=== PATIENT | male | born 1940 | race Caucasian/White ===

== ENCOUNTER → 2018-11-11 | Outpatient (CLI) | payer MEDICARE ==
[2018-11-11 10:51] LABS: ABSOLUTE LYMPHOCYTES 0.7 thou/uL (0.8-5.3); ABSOLUTE MONOCYTES 0.5 thou/uL (0.0-1.2); ABSOLUTE NEUTROPHILS 5.2 thou/uL (1.6-8.1); BASOPHILS 0.1 %; HEMOGLOBIN 14.7 gm/dL (14.0-18.0); LYMPHOCYTES 10.4 %; MCH 29.3 pg (26.0-34.0); MCHC 33.3 g/dL (28.0-37.0); MCV 87.9 fL (80.0-100.0); MONOCYTES 8.3 %; MPV 7.5 fl. (7.2-11.1); NUCLEATED RBCS 0 /100WBC; PLATELET COUNT* 203 thou/uL (150-400); POLYS 81.2 %; RBC 5.01 mil/uL (4.50-6.00); RDW-CV 14.7 % (10.5-14.5); WBC 6.4 thou/uL (4.0-11.0)
[2018-11-11 11:01] LABS: ALKALINE PHOSPHATASE 84 U/L (46-116); ANION GAP 8 mmol/L (7-16); BUN 21 mg/dL (7-18); CALCIUM 9.4 mg/dL (8.5-10.1); CHLORIDE 104 mmol/L (98-107); CHOLESTEROL 164 mg/dL (<200); CO2 30 mmol/L (21-32); CREATININE 0.9 mg/dL (0.6-1.3); DIRECT BILIRUBIN 0.2 mg/dL (<0.1-0.3); GLUCOSE 127 mg/dL (70-99); HDL CHOLESTEROL 67 mg/dL (>40); LDL CHOLESTEROL 93 mg/dL (<100); POTASSIUM 3.9 mmol/L (3.5-5.1); SGOT 11 U/L (15-37); SGPT 19 U/L (30-65); SODIUM 142 mmol/L (136-145); TC:HDL 2.4 Ratio (Not establshd); TOTAL BILIRUBIN 0.6 mg/dL (<0.1-1.0); TOTAL PROTEIN 8.1 g/dL (6.4-8.2); TRIGLYCERIDE 21 mg/dL (<150); VLDL 4 mg/dL (<40)
[2018-11-11 11:02] LABS: SERUM ASSESSMENT Clear
[2018-11-11 11:54] LABS: ESR (SEDRATE) 10 mm/hr (0-20)
[2018-11-11 17:06] LABS: GLYCOHEMOGLOBIN (HGB A1C) 5.4 % (4.8-5.6)
== END ==
LOC: M.CT 09:45
PROVIDERS: Registered Nurse Diabetes Educator
DX: M47.816 Spondylosis without myelopathy or radiculopathy, lumbar region (principal); M41.86 Other forms of scoliosis, lumbar region; M46.06 Spinal enthesopathy, lumbar region; M16.11 Unilateral primary osteoarthritis, right hip; I65.23 Occlusion and stenosis of bilateral carotid arteries; M25.552 Pain in left hip; R82.4 Acetonuria; R31.9 Hematuria, unspecified; R10.30 Lower abdominal pain, unspecified; I10 Essential (primary) hypertension; E55.9 Vitamin D deficiency, unspecified; K21.0 Gastro-esophageal reflux disease with esophagitis; R41.3 Other amnesia; H91.93 Unspecified hearing loss, bilateral; R47.89 Other speech disturbances; E53.8 Deficiency of other specified B group vitamins; Z88.8 Allergy status to other drugs, medicaments and biological substances; Z87.442 Personal history of urinary calculi; Z79.899 Other long term (current) drug therapy; Z68.26 Body mass index [BMI] 26.0-26.9, adult

== ENCOUNTER → 2018-12-02 | Outpatient (CLI) | payer MEDICARE | LOC: M.LAB 10:00 → M.CT 11:30 | PROVIDERS: Registered Nurse Diabetes Educator | DX: K57.30 Diverticulosis of large intestine without perforation or abscess without bleeding (principal); K40.90 Unilateral inguinal hernia, without obstruction or gangrene, not specified as recurrent; M16.12 Unilateral primary osteoarthritis, left hip; M51.36 Other intervertebral disc degeneration, lumbar region; M48.061 Spinal stenosis, lumbar region without neurogenic claudication; Z98.890 Other specified postprocedural states; Z87.19 Personal history of other diseases of the digestive system ==

== ENCOUNTER 2018-12-29 22:26 | Observation (INO) | payer MEDICARE ==
[~2018-12-29] VITALS: Ht 182.9 cm; Wt 85.7 kg
[2018-12-29 22:28] VITALS: BP 137/51
[2018-12-29] MEDS ORDERED: FOLBIC RF TABL1 EACH PO (22:35)
[2018-12-29] MEDS ORDERED: LISINOPRIL10 MG PO (22:35)
[2018-12-29] MEDS ORDERED: D3 + K2 DOTS 11 EACH PO (22:36)
[2018-12-29 22:59] LABS: ABSOLUTE LYMPHOCYTES 0.4 thou/uL (0.8-5.3); ABSOLUTE MONOCYTES 1.2 thou/uL (0.0-1.2); ABSOLUTE NEUTROPHILS 7.6 thou/uL (1.6-8.1); BASOPHILS 0.1 %; HEMATOCRIT 35.2 % (42.0-52.0); HEMOGLOBIN 11.9 gm/dL (14.0-18.0); LYMPHOCYTES 4.3 %; MCH 29.3 pg (26.0-34.0); MCHC 33.7 g/dL (28.0-37.0); MCV 87.1 fL (80.0-100.0); MONOCYTES 13.3 %; MPV 7.3 fl. (7.2-11.1); NUCLEATED RBCS 0 /100WBC; PLATELET COUNT* 147 thou/uL (150-400); POLYS 82.3 %; RBC 4.04 mil/uL (4.50-6.00); RDW-CV 14.9 % (10.5-14.5); WBC 9.2 thou/uL (4.0-11.0)
[2018-12-29 23:10] LABS: ANION GAP 9 mmol/L (7-16); BUN 28 mg/dL (7-18); CALCIUM 8.5 mg/dL (8.5-10.1); CHLORIDE 107 mmol/L (98-107); CO2 26 mmol/L (21-32); GLUCOSE 109 mg/dL (70-99); POTASSIUM 3.8 mmol/L (3.5-5.1); SODIUM 142 mmol/L (136-145)
[2018-12-29 23:11] LABS: APTT 26.3 Seconds (25.0-31.3); INR 1.1; PROTIME 10.9 Seconds (9.20-11.50)
[2018-12-29 23:21] LABS: ALBUMIN 3.3 g/dL (3.4-5.0); ALKALINE PHOSPHATASE 77 U/L (46-116); NT-PRO BRAIN NAT PEPTIDE 252 pg/mL (<300); SGOT 12 U/L (15-37); SGPT 19 U/L (30-65); TOTAL BILIRUBIN 0.7 mg/dL (<0.1-1.0); TOTAL PROTEIN 6.8 g/dL (6.4-8.2); TROPONIN-I LEVEL <0.06 ng/mL (<0.06)
[2018-12-30 00:14] LABS: URINE BILIRUBIN NEGATIVE (Negative); URINE BLOOD TRACE (Negative); URINE CLARITY CLEAR; URINE COLOR YELLOW; URINE GLUCOSE-RANDOM NEGATIVE (Negative); URINE KETONES 1+ (Negative); URINE LEUKOCYTES-REFLEX NEGATIVE (Negative); URINE NITRITE-REFLEX NEGATIVE (Negative); URINE PROTEIN NEGATIVE (Negative); URINE SPECIFIC GRAVITY 1.015 (1.005-1.030)
[2018-12-30 01:27] VITALS: BP 125/57
[2018-12-30 01:45] VITALS: BP 139/65
[2018-12-30] MEDS ORDERED: ALEVE220 MG PO (02:18)
--- NOTE | 2018-12-30 06:19 | NUR ---
PATIENT ADMITTED AT 0145. ACCOMPANIED AND STAYED ALL NIGHT. SHE IS THE ONE TO MAKE DECISIONS AND ANSWER QUESTIONS DUE TO HIS DECREASE OF LOC. 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 PATIENT IMMEDIATELY FELL ASLEEP UPON ADMISSION AND SLEPT THROUGH NIGHT.
[2018-12-30 07:45] VITALS: BP 136/73
[2018-12-30 09:26] LABS: INFLUENZA A ANTIGEN None Detected (None Detect); INFLUENZA B ANTIGEN None Detected (None Detect)
[2018-12-30 11:09] VITALS: BP 136/73
[2018-12-30 11:22] VITALS: BP 136/73
--- NOTE | 2018-12-30 11:55 | NUR ---
PATIENT DISCHARGED [facility]. DISCHARGE PAPERS REVIEWED AND SIGNED. NO PRESCRIPTIONS. IV REMOVED. PATIENT DENIES ANY FURTHER NEEDS. PATIENT TAKEN BY WHEELCHAIR TO EXIT. LEFT WITH .
--- NOTE | 2018-12-30 14:20 | NUR ---
PT.DISCHARGE BEFORE CM COULD ASSESS FOR ANY NEEDS.
--- NOTE | 2018-12-30 17:00 | EKG ---
[place] [address] ELECTROCARDIOGRAM REPORT Name: RAFAELA GLORIA Room: [address] M.R.#: [id number] Admission: 12/30/18 Attend Phys: Stephan Fierro Discharge: 12/30/18 Date of : 40 Report #: [id number] THIS REPORT FOR: //name// [facility] ED Test Date: 2018-12-29 Test Time: 22:51:46 Pat Name: RAFAELA GLORIA Department: Room: [facility] Gender: M Electrical Power Engineer: MARIA ESTHER : 1940 Requested By: Mitchell Plummer Order Number: [id number] MD: Shaggy Ozuna Measurements Intervals [place] Rate: 84 P: 1 OK: 237 QRS: -47 QRSD: 115 T: 74 QT: 378 QTc: 447 Interpretive Statements Sinus rhythm Prolonged OK interval Left anterior fascicular block Probable left ventricular hypertrophy Compared to ECG 02/07/2016 11:45:00 Left anterior fascicular block now present Electronically Signed On 12-30-2018 17:00:13 CDT by Shaggy Ozuna [email or web address] <ELECTRONICALLY SIGNED> By: Shaggy Ozuna MD, FAC 12/30/18 1700 225 225 Shaggy Ozuna MD, FAC /EPI
== END 2018-12-30 11:55 | disposition home or self-care (01) ==
LOC: M.ERS 22:26 → M.ORTHSURG 12-30 00:28 → M.TBA-ER 12-30 00:28 → M.ORTHSURG 12-30 00:28
PROVIDERS: Nurse Practitioner Psychiatric/Mental Health; ADMIT Internal Medicine
DX: G92 Toxic encephalopathy (principal); B34.9 Viral infection, unspecified; T67.3XXA Heat exhaustion, anhydrotic, initial encounter; F03.90 Unspecified dementia, unspecified severity, without behavioral disturbance, psychotic disturbance, mood disturbance, and anxiety; M16.10 Unilateral primary osteoarthritis, unspecified hip; I87.8 Other specified disorders of veins; I10 Essential (primary) hypertension; R41.0 Disorientation, unspecified; Z86.73 Personal history of transient ischemic attack (TIA), and cerebral infarction without residual deficits; Z85.46 Personal history of malignant neoplasm of prostate; Z79.899 Other long term (current) drug therapy

== ENCOUNTER 2021-04-21 09:44 | Emergency (ER) | payer MEDICARE ==
[~2021-04-21] VITALS: Ht 182.9 cm; Wt 90.7 kg
[~2021-04-21 09:44] MED LIST: ALEVE220 MG PO; D3 + K2 DOTS 11 EACH PO; FOLBIC RF TABL1 EACH PO; LISINOPRIL10 MG PO
[2021-04-21] MEDS ORDERED: ARICEPT10 M1 PO (10:18)
[2021-04-21] MEDS ORDERED: GABAPENTIN100 MG PO (10:18)
[2021-04-21] MEDS ORDERED: MEMANTINE HCL E21 MG PO (10:19)
[2021-04-21] MEDS ORDERED: HALOPERIDOL 1 MG1 MG PO (10:19)
[2021-04-21] MEDS ORDERED: SERTRALINE HCL100 MG PO (10:19)
[2021-04-21] MEDS ORDERED: CEPHALEXIN500 MG PO (11:27)
[2021-04-21] MEDS ORDERED: MUPIROCIN1 GM TOP (11:27)
[2021-04-21 11:44] VITALS: BP 150/78
== END 2021-04-21 11:45 | disposition home or self-care (01) ==
LOC: M.ERS 09:44
DX: S50.02XA Contusion of left elbow, initial encounter (principal); M25.512 Pain in left shoulder; M25.521 Pain in right elbow; F03.90 Unspecified dementia, unspecified severity, without behavioral disturbance, psychotic disturbance, mood disturbance, and anxiety; I10 Essential (primary) hypertension; Z86.73 Personal history of transient ischemic attack (TIA), and cerebral infarction without residual deficits; Z85.46 Personal history of malignant neoplasm of prostate; Z87.442 Personal history of urinary calculi; Z98.890 Other specified postprocedural states; Z79.899 Other long term (current) drug therapy; Z88.8 Allergy status to other drugs, medicaments and biological substances